=== PATIENT | male | born 1945 | race Hispanic/Latino ===

== ENCOUNTER 2017-06-18 20:07 | Emergency (ER) | payer MEDICARE ==
[2017-06-19] MEDS ORDERED: TORADOL IM ONE (00:31)
--- NOTE | 2017-06-19 00:35 | Emergency Department Report ---
ED Extremity Problem HPI - General Chief complaint: Extremity Injury, Lower Stated complaint: KNEE PAIN Time Seen by Provider: 06/19/17 00:30 Source: patient Mode of arrival: Ambulatory Limitations: No Limitations - History of Present Illness Initial comments: 72-year-old male comes in complaining about right knee pain has been going on for a week. Patient reports that he has sprained his right knee week ago and was seen by his orthopedist. Today he reports that the pain is worsening. Patient reports that he was moving a rug washer about a day and a half ago and that's when he started to have pain. 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 Patient reports most of his pain is in the posterior portion of the knee. MD Complaint: extremity pain -: week(s) (1) Location: right, knee History of Same: Yes -: Yes arthralgia Radiation: none Severity scale (0 -10): 9 Quality: aching Improves with: rest Worsens with: weight bearing, walking Associated Symptoms: denies other symptoms - Related Data Home Medications Medication Instructions Recorded Confirmed Last Taken Lisinopril 10 mg PO DAILY 06/18/17 06/18/17 Unknown metFORMIN 500 mg PO BID 06/18/17 06/18/17 Unknown Previous Rx's Medication Instructions Recorded Last Taken Type Naproxen [Naprosyn] 500 mg PO BID #20 tablet 06/19/17 Unknown Rx Allergies Allergy/AdvReac Type Severity Reaction Status Date / Time No Known Allergies Allergy Unverified 06/18/17 20:46 ED Review of Systems ROS: Stated complaint: KNEE PAIN Other details as noted in HPI Constitutional: denies: chills, fever Eyes: denies: eye pain, eye discharge, vision change ENT: denies: ear pain, throat pain Respiratory: denies: cough, shortness of breath, wheezing Cardiovascular: denies: chest pain, palpitations Endocrine: no symptoms reported Gastrointestinal: denies: abdominal pain, nausea, diarrhea Genitourinary: denies: urgency, dysuria Musculoskeletal: arthralgia (right knee). denies: back pain, joint swelling Skin: denies: rash, lesions Neurological: denies: headache, weakness, paresthesias Psychiatric: denies: anxiety, depression Hematological/Lymphatic: denies: easy bleeding, easy bruising ED Past Medical Hx - Past Medical History Hx Hypertension: Yes Hx Diabetes: Yes Additional medical history: High Cholesterol - Surgical History Additional Surgical History: CABG X4 - Social History Smoking Status: Never Smoker Substance Use Type: None - Medications Home Medications: Home Medications Medication Instructions Recorded Confirmed Last Taken Type Lisinopril 10 mg PO DAILY 06/18/17 06/18/17 Unknown History metFORMIN 500 mg PO BID 06/18/17 06/18/17 Unknown History Naproxen [Naprosyn] 500 mg PO BID #20 tablet 06/19/17 Unknown Rx ED Physical Exam - General Limitations: No Limitations General appearance: alert, in no apparent distress - Head Head exam: Present: atraumatic, normocephalic - Eye Eye exam: Present: normal appearance - ENT ENT exam: Present: mucous membranes moist - Neck Neck exam: Present: normal inspection - Expanded Lower Extremity Exam Right Hip exam: Present: full ROM Upper Leg exam: Present: normal inspection, full ROM Knee exam: Present: normal inspection, full ROM, tenderness (posterior knee). Absent: swelling, abrasion, ecchymosis, deformity, erythema Lower Leg exam: Present: normal inspection, full ROM. Absent: tenderness, swelling Ankle exam: Present: normal inspection Foot/Toe exam: Present: normal inspection Neuro vascular tendon exam: Present: no vascular compromise ED Course Vital Signs 06/18/17 20:24 Temperature 100.3 F H Pulse Rate 81 Respiratory 20 Rate Blood Pressure 111/85 O2 Sat by Pulse 99 Oximetry ED Medical Decision Making - Medical Decision Making Patient has been evaluated by this provider fast track. I discussed this patient Toradol injection of 30 mg. I would've liked to given him prednisone the patient is a diabetic. I discussed the patient discharged him on naproxen to take twice a day and to follow-up with his orthopedist patient verbalizes understanding. Critical care attestation.: If time is entered above; I have spent that time in minutes in the direct care of this critically ill patient, excluding procedure time. ED Disposition Clinical Impression: Posterior right knee pain Disposition: DC-01 TO HOME OR SELFCARE Is pt being admited?: No Does the pt Need Aspirin: No Condition: Stable Additional Instructions: Please take pain medication as prescribed. Please take all chronic medication as prescribed. Please follow-up with the orthopedist. Prescriptions: Naproxen [Naprosyn] 500 mg PO BID #20 tablet Referrals: THADDEUS CARSON MD [Primary Care Provider] - 3-5 Days your,provider [Other] - 3-5 Days
--- NOTE | 2017-06-19 01:03 | XRay Report ---
FINAL REPORT PROCEDURE: XR KNEE 3V RT TECHNIQUE: RIGHT knee radiographs, AP, lateral and oblique views. CPT 10217 HISTORY: right knee pain COMPARISON: No prior studies are available for comparison. FINDINGS: Fracture (s) and/or Dislocation(s): None . Alignment: Normal . Joint space(s): Moderate narrowing of the joint spaces. Mild spur formation off of the osseous structures.. Soft tissues: Normal . Bone mineralization: Normal . Foreign bodies: None . IMPRESSION: There is no evidence of an acute fracture or dislocation. Mild arthritis.
[2017-06-19 01:19] VITALS: BP 114/83
== END 2017-06-19 01:20 | disposition home or self-care (01) ==
LOC: ED 20:07
DX: M25.561 Pain in right knee (principal); I10 Essential (primary) hypertension; E11.9 Type 2 diabetes mellitus without complications; E78.00 Pure hypercholesterolemia, unspecified; Z95.1 Presence of aortocoronary bypass graft
CPT/HCPCS: 73562; 82962; 96372; 99283; J1885

== ENCOUNTER 2017-07-24 19:13 | Emergency (ER) | payer MEDICARE ==
[2017-07-24 19:26] VITALS: BP 154/106
--- NOTE | 2017-07-24 23:03 | Emergency Department Report ---
Eye Injury/Foreign Body - HPI Duration: 2 Days Eye Location: Left Severity: Moderate Tetanus Status: Up to Date Eye Symptoms: Eye Pain: Yes, Blurred Vision: No, Eye Redness: Yes, Grinding/ Hammering Metal: No, Used Eye Protection: No, Contact Lens Use: No, Recalls Injury: No, Photophobia: No Other History: No visual loss, grittiness to left eye with matted eyelashes with purulent discharge, no visual loss no eye pain no photophobia he is here because he thinks he has pinkeye ED Review of Systems ROS: Stated complaint: LEFT EYE PAIN Other details as noted in HPI Comment: All other systems reviewed and negative Constitutional: denies: diaphoresis, fever, malaise Eyes: as per HPI, eye discharge, other (no visual loss no foreign body) Respiratory: denies: shortness of breath, SOB with exertion, SOB at rest, stridor Cardiovascular: denies: chest pain, palpitations, dyspnea on exertion, orthopnea , edema, syncope, paroxysmal nocturnal dyspnea ED Past Medical Hx - Past Medical History Hx Hypertension: Yes Hx Heart Attack/AMI: Yes Hx Diabetes: Yes Additional medical history: High Cholesterol - Surgical History Additional Surgical History: CABG X4, Bilateral Cataract surgery - Social History Smoking Status: Never Smoker Substance Use Type: None - Medications Home Medications: Home Medications Medication Instructions Recorded Confirmed Last Taken Type Lisinopril 10 mg PO DAILY 06/18/17 06/18/17 Unknown History metFORMIN 500 mg PO BID 06/18/17 06/18/17 Unknown History Naproxen [Naprosyn] 500 mg PO BID #20 tablet 06/19/17 Unknown Rx Tobramycin 0.3% [Tobrex] 1 drop OS Q4HR 5 Days #1 bottle 07/24/17 Unknown Rx Eye Injury Exam - Exam General: Vital signs noted. No distress. Alert and acting appropriately. - Visual Acuity Left Vision Acuity Degree: 20/20 Eye Exam: Left Injection, Left Purulent Discharge Right Vision Acuity Degree: 20/20 Bilateral Vision Acuity Degree: 20/40 Exam: No hyphema no hypopyon normal K bilaterally extraocular motions intact. She. Fundus poorly visualized no gross hemorrhage or exudate pressure is normal bilatpalpation stable for outpatient follow-up ED Course Vital Signs 07/24/17 19:20 Temperature 98.4 F Pulse Rate 72 Respiratory 18 Rate Blood Pressure 154/106 O2 Sat by Pulse 97 Oximetry ED Medical Decision Making - Medical Decision Making O[place]da is normal no anterior chamber problems no evidence of shortness of problems no visual loss normal pressure bilaterally does have purulence with injection and left conjunctivitis stable for outpatient follow-up Critical care attestation.: If time is entered above; I have spent that time in minutes in the direct care of this critically ill patient, excluding procedure time. ED Disposition Clinical Impression: [place] eye Disposition: DC-01 TO HOME OR SELFCARE Is pt being admited?: No Condition: Stable Instructions: Conjunctivitis (ED) Additional Instructions: See the doctor listed return if new or alarming symptoms medication as directed Prescriptions: Tobramycin 0.3% [Tobrex] 1 drop OS Q4HR 5 Days #1 bottle Referrals: THADDEUS CARSON MD [Primary Care Provider] - 3-5 Days Time of Disposition: 23:05
== END 2017-07-24 23:32 | disposition home or self-care (01) ==
LOC: ED 19:13
DX: H10.022 Other mucopurulent conjunctivitis, left eye (principal); I10 Essential (primary) hypertension; I25.2 Old myocardial infarction; E11.9 Type 2 diabetes mellitus without complications; E78.00 Pure hypercholesterolemia, unspecified
CPT/HCPCS: 99282

== ENCOUNTER 2017-07-27 03:20 | Emergency (ER) | payer MEDICARE ==
[2017-07-27 05:26] LABS: Bilirubin,Urine NEG (Negative); Blood,Urine NEG (Negative); Color,Urine Yellow (Yellow); Hyaline Casts,Urine 1 /LPF; Protein,Urine <15 mg/dL mg/dL (Negative)
[2017-07-27 05:32] LABS: Amphetamine Screen,Urine PRESUMPTIVE NEGATIVE; Benzodiazepines Screen,Urine PRESUMPTIVE NEGATIVE; Cannabinoid Screen,Urine PRESUMPTIVE NEGATIVE; Cocaine Screen,Urine PRESUMPTIVE NEGATIVE; Methadone Screen,Urine PRESUMPTIVE NEGATIVE; Opiate Screen,Urine PRESUMPTIVE NEGATIVE
[2017-07-27 05:33] LABS: Basophils % (Auto) 0.4 % (0.0-1.8); Eosinophils # (Auto) 0.2 K/mm3 (0.0-0.4); Eosinophils % (Auto) 2.5 % (0.0-4.3); Hematocrit 36.4 % (35.5-45.6); Hemoglobin 12.3 gm/dl (11.8-15.2); Lymphocytes # (Auto) 2.5 K/mm3 (1.2-5.4); Lymphocytes % (Auto) 31.3 % (13.4-35.0); Mean Corpuscular HGB Conc 34 % (32-34); Mean Corpuscular Hemoglobin 32 pg (28-32); Mean Corpuscular Volume 94 fl (84-94); Monocytes % (Auto) 11.8 % (0.0-7.3); Platelet Count 259 K/mm3 (140-440); Red Blood Count 3.89 M/mm3 (3.65-5.03); Red Cell Distribution Width 14.6 % (13.2-15.2)
[2017-07-27 05:43] LABS: INR 0.98 (0.87-1.13)
[2017-07-27 05:53] LABS: Calcium 10.4 mg/dL (8.4-10.2)
[2017-07-27 09:57] LABS: Free T4 (Free Thyroxine) 1.41 ng/dL (0.76-1.46)
[2017-07-27] MEDS ORDERED: K-DUR PO ONE (10:14)
[2017-07-27] MEDS ORDERED: FUL-GLO OP ONE (11:03)
[2017-07-27] MEDS ORDERED: TETRACAINE 0.5% OU STA (11:04)
--- NOTE | 2017-07-27 12:47 | Emergency Department Report ---
ED Psych HPI - General Chief Complaint: Psych Stated Complaint: LEFT EYE PAIN Time Seen by Provider: 07/27/17 10:11 Source: patient Mode of arrival: Ambulatory - History of Present Illness MD Complaint: other (feels like he is having a nervous breakdown and is not sleeping) -: week(s) (1) Associated Psychiatric Symptoms: other (pt denied to me any suicidal or homicidal thoughts; I spoke with pt's son who stated he does not feel the pt is a danger to himself or anyone else. Son stated pt has a lot of recent stress and is not sleeping.He stated that he does not feel the pt would overdose or do anything harmful to himself) Associated Symptoms: insomnia - Related Data Home Medications Medication Instructions Recorded Confirmed Last Taken Lisinopril 10 mg PO DAILY 06/18/17 06/18/17 Unknown metFORMIN 500 mg PO BID 06/18/17 06/18/17 Unknown Previous Rx's Medication Instructions Recorded Last Taken Type Naproxen [Naprosyn] 500 mg PO BID #20 tablet 06/19/17 Unknown Rx Tobramycin 0.3% [Tobrex] 1 drop OS Q4HR 5 Days #1 bottle 07/24/17 Unknown Rx ALPRAZolam [Xanax TAB] 0.5 mg PO TID PRN #9 tab 07/27/17 Unknown Rx Allergies Allergy/AdvReac Type Severity Reaction Status Date / Time No Known Allergies Allergy Unverified 06/18/17 20:46 ED Review of Systems ROS: Stated complaint: LEFT EYE PAIN Other details as noted in HPI Constitutional: denies: diaphoresis, fever Eyes: eye discharge (pt is currently being treated with antibiotic eye drops), other (left eye irritation; pt states he has a history of cataract removal and laser surgery) Respiratory: denies: shortness of breath, SOB with exertion, SOB at rest Cardiovascular: denies: chest pain Endocrine: denies: excessive sweating Gastrointestinal: denies: abdominal pain Musculoskeletal: denies: joint swelling Skin: denies: rash Neurological: denies: numbness Psychiatric: denies: auditory hallucinations, homicidal thoughts, suicidal thoughts ED Past Medical Hx - Past Medical History Previous Medical History?: Yes Hx Hypertension: Yes Hx Heart Attack/AMI: Yes (CABG x 4) Hx Diabetes: Yes Additional medical history: High Cholesterol - Surgical History Past Surgical History?: Yes Additional Surgical History: CABG X4, Bilateral Cataract surgery - Social History Smoking Status: Never Smoker Substance Use Type: None - Medications Home Medications: Home Medications Medication Instructions Recorded Confirmed Last Taken Type Lisinopril 10 mg PO DAILY 06/18/17 06/18/17 Unknown History metFORMIN 500 mg PO BID 06/18/17 06/18/17 Unknown History Naproxen [Naprosyn] 500 mg PO BID #20 tablet 06/19/17 Unknown Rx Tobramycin 0.3% [Tobrex] 1 drop OS Q4HR 5 Days #1 bottle 07/24/17 Unknown Rx ALPRAZolam [Xanax TAB] 0.5 mg PO TID PRN #9 tab 07/27/17 Unknown Rx ED Physical Exam - General Limitations: No Limitations General appearance: alert, in no apparent distress - Head Head exam: Present: atraumatic, normocephalic - Eye Eye exam: Present: normal appearance, PERRL, EOMI, conjunctival injection, other (iop os 10 iop od 14; no corneal abrasion on left; yellowish drainage from left eye). Absent: periorbital swelling Pupils: Absent: unequal, miosis, mydriatic - ENT ENT exam: Present: normal exam - Neck Neck exam: Present: normal inspection - Respiratory Respiratory exam: Present: normal lung sounds bilaterally. Absent: respiratory distress, wheezes, rales, stridor - Cardiovascular Cardiovascular Exam: Present: regular rate, normal rhythm, normal heart sounds - GI/Abdominal GI/Abdominal exam: Present: soft, normal bowel sounds. Absent: distended, tenderness, guarding, rebound - Back Exam Back exam: Present: normal inspection - Neurological Exam Neurological exam: Present: alert, oriented X3, CN II-XII intact - Psychiatric Psychiatric exam: Present: normal mood. Absent: depressed - Skin Skin exam: Present: warm, dry, intact ED Course Vital Signs 07/27/17 07/27/17 07/27/17 03:21 04:21 10:20 Temperature 97.9 F 97.9 F 97.5 F L Pulse Rate 79 70 66 Respiratory 18 20 16 Rate Blood Pressure 148/89 148/89 Blood Pressure 138/77 [Right] O2 Sat by Pulse 93 96 100 Oximetry 07/27/17 07/27/17 13:56 18:35 Temperature 98.3 F 98.1 F Pulse Rate 76 82 Respiratory 16 16 Rate Blood Pressure Blood Pressure 129/76 110/56 [Right] O2 Sat by Pulse 100 96 Oximetry - Reevaluation(s) Reevaluation #1: 07/27/17 16:20 Pt is awaiting eval by Amber from [facility] 07/27/17 16:20 Amber informed me pt had been evaluated and he can be dc'd from her standpoint. ED Medical Decision Making - Lab Data Result diagrams: 07/27/17 04:34 07/27/17 04:34 - Medical Decision Making Pt is stressed and has anxiety and insomnia issues, but exhibits no homocidal or suicidal behavior. - Differential Diagnosis insomnia, Critical care attestation.: If time is entered above; I have spent that time in minutes in the direct care of this critically ill patient, excluding procedure time. ED Disposition Clinical Impression: Anxiety, Insomnia, Conjunctivitis, Hypokalemia Disposition: DC-01 TO HOME OR SELFCARE Is pt being admited?: No Does the pt Need Aspirin: No Condition: Stable Instructions: Conjunctivitis (ED), Insomnia (ED), Anxiety (ED) Additional Instructions: continue your eye drops follow up with your eye doctor this week return sooner if worse or if further concerns Prescriptions: ALPRAZolam [Xanax TAB] 0.5 mg PO TID PRN #9 tab PRN Reason: Anxiety Referrals: PRADEEP MARSH MD [Primary Care Provider] - 3-5 Days Time of Disposition: 16:51
[2017-07-27 18:35] VITALS: BP 110/56
== END 2017-07-27 19:56 | disposition home or self-care (01) ==
LOC: ED 03:20
DX: H10.9 Unspecified conjunctivitis (principal); G47.00 Insomnia, unspecified; E87.6 Hypokalemia; F41.9 Anxiety disorder, unspecified; I10 Essential (primary) hypertension; I25.2 Old myocardial infarction; E11.9 Type 2 diabetes mellitus without complications; E78.00 Pure hypercholesterolemia, unspecified
CPT/HCPCS: 36415; 80048; 80307; 81001; 84439; 84443; 85025; 85610; 85730; 99284; G0480; 80320

== ENCOUNTER 2018-06-12 17:55 | Emergency (ER) | payer MEDICARE, MEDICAID ==
[2018-06-12 17:59] VITALS: BP 125/76
--- NOTE | 2018-06-12 18:01 | Emergency Department Report ---
Blank Doc - Documentation Documentation: This is a 73-year-old male that presents with right knee pain with radiation to leg. DX with arthritis. Stated has new injuries 2 days. Stated has some calf pain as well. This initial assessment/diagnostic orders/clinical plan/treatment(s) is/are subject to change based on patient's health status, clinical progression and re- assessment by fellow clinical providers in the ED. Further treatment and workup at subsequent clinical providers discretion. Patient/guardians urged not to elope from the ED as their condition may be serious if not clinically assessed and managed. Initial orders include: 1- Patient sent to MAIN for further evaluation and treatment 2- Doppler US 3- Xray
--- NOTE | 2018-06-12 18:37 | Emergency Department Report ---
ED Lower Extremity HPI - General Chief Complaint: Extremity Injury, Lower Stated Complaint: PAIN IN (R) LEG Time Seen by Provider: 06/12/18 18:34 Source: patient Mode of arrival: Wheelchair Limitations: Physical Limitation - History of Present Illness Initial Comments: Patient is 73-year-old male that presents emergency room with complaints of rt knee pain. Patient states that the pain started 3 days ago and is worsening. Patient states he twisted his knee lifting firewood. Patient denies trauma. Patient denies falling. Patient states the pain is 10 out of 10. Patient states it's nonradiating. Patient states it's in his right knee and is causing swelling. Patient denies chest pain or shortness of breath. Patient denies abdominal pain.\ MD Complaint: knee injury -: Sudden Injury: Knee: Right Type of Injury: eversion Place: home Severity: severe Severity scale (0 -10): 10 Improves With: rest Worsens With: weight bearing, movement, palpation Context: other (twisting) Associated Symptoms: swelling, able to partially bear weight - Related Data Home Medications Medication Instructions Recorded Confirmed Last Taken metFORMIN 500 mg PO BID 06/18/17 08/07/17 Unknown Aricept 10 mg PO HS 08/11/17 08/11/17 Unknown Lactulose [Constulose] 15 ml PO BID 08/11/17 08/11/17 Unknown Lisinopril [Zestril] 20 mg PO DAILY 08/11/17 08/11/17 Unknown Pepcid 20 mg PO DAILY 08/11/17 08/11/17 Unknown Quetiapine Fumarate [SEROquel] 50 mg PO QDAY 08/11/17 08/11/17 Unknown glyBURIDE [Diabeta] 2.5 mg PO DAILY 08/11/17 08/11/17 Unknown hydroCHLOROthiazide [HCTZ] 25 mg PO QDAY 08/11/17 08/11/17 Unknown metFORMIN [Glucophage] 500 mg PO BID 08/11/17 08/11/17 Unknown Previous Rx's Medication Instructions Recorded Last Taken Type Tobramycin 0.3% [Tobrex] 1 drop OS Q4HR 5 Days #1 bottle 07/24/17 Unknown Rx ALPRAZolam [Xanax TAB] 0.5 mg PO TID PRN #9 tab 07/27/17 Unknown Rx Aspirin EC [Aspirin Enteric Coated 325 mg PO QDAY #30 tablet. 08/11/17 Unknown Rx TAB] AtorvaSTATin [Lipitor] 10 mg PO QHS #30 tab 08/11/17 Unknown Rx Tramadol HCl [Ultram] 50 mg PO Q6HR PRN #12 tablet 06/12/18 Unknown Rx Allergies Allergy/AdvReac Type Severity Reaction Status Date / Time No Known Allergies Allergy Verified 06/12/18 17:56 ED Review of Systems ROS: Stated complaint: PAIN IN (R) LEG Other details as noted in HPI Constitutional: denies: chills, fever Eyes: denies: eye pain, eye discharge, vision change ENT: denies: ear pain, throat pain Respiratory: denies: cough, shortness of breath, wheezing Cardiovascular: denies: chest pain, palpitations Endocrine: no symptoms reported Gastrointestinal: denies: abdominal pain, nausea, diarrhea Genitourinary: denies: urgency, dysuria Musculoskeletal: joint swelling. denies: back pain, arthralgia Skin: denies: rash, lesions Neurological: denies: headache, weakness, paresthesias Psychiatric: denies: anxiety, depression Hematological/Lymphatic: denies: easy bleeding, easy bruising ED Past Medical Hx - Past Medical History Previous Medical History?: Yes Hx Hypertension: Yes Hx Heart Attack/AMI: Yes (CABG x 4) Hx Diabetes: Yes Hx HIV: No Additional medical history: High Cholesterol - Surgical History Past Surgical History?: Yes Additional Surgical History: CABG X4, Bilateral Cataract surgery - Family History Family history: no significant - Social History Smoking Status: Never Smoker Substance Use Type: None - Medications Home Medications: Home Medications Medication Instructions Recorded Confirmed Last Taken Type metFORMIN 500 mg PO BID 06/18/17 08/07/17 Unknown History Tobramycin 0.3% [Tobrex] 1 drop OS Q4HR 5 Days #1 bottle 07/24/17 08/07/17 Unknown Rx ALPRAZolam [Xanax TAB] 0.5 mg PO TID PRN #9 tab 07/27/17 08/07/17 Unknown Rx Aricept 10 mg PO HS 08/11/17 08/11/17 Unknown History Aspirin EC [Aspirin Enteric Coated 325 mg PO QDAY #30 tablet. 08/11/17 Unknown Rx TAB] AtorvaSTATin [Lipitor] 10 mg PO QHS #30 tab 08/11/17 Unknown Rx Lactulose [Constulose] 15 ml PO BID 08/11/17 08/11/17 Unknown History Lisinopril [Zestril] 20 mg PO DAILY 08/11/17 08/11/17 Unknown History Pepcid 20 mg PO DAILY 08/11/17 08/11/17 Unknown History Quetiapine Fumarate [SEROquel] 50 mg PO QDAY 08/11/17 08/11/17 Unknown History glyBURIDE [Diabeta] 2.5 mg PO DAILY 08/11/17 08/11/17 Unknown History hydroCHLOROthiazide [HCTZ] 25 mg PO QDAY 08/11/17 08/11/17 Unknown History metFORMIN [Glucophage] 500 mg PO BID 08/11/17 08/11/17 Unknown History Tramadol HCl [Ultram] 50 mg PO Q6HR PRN #12 tablet 06/12/18 Unknown Rx ED Physical Exam - General Limitations: Physical Limitation General appearance: alert, in no apparent distress - Head Head exam: Present: atraumatic, normocephalic - Eye Eye exam: Present: normal appearance - ENT ENT exam: Present: mucous membranes moist - Neck Neck exam: Present: normal inspection - Respiratory Respiratory exam: Present: normal lung sounds bilaterally. Absent: respiratory distress - Cardiovascular Cardiovascular Exam: Present: regular rate, normal rhythm. Absent: systolic murmur, diastolic murmur, rubs, gallop - GI/Abdominal GI/Abdominal exam: Present: soft, normal bowel sounds - Rectal Rectal exam: Present: deferred - Extremities Exam Extremities exam: Present: tenderness (right lateral knee tenderness. Tenderness over right meniscus.), normal capillary refill, joint swelling (right knee swelling noted). Absent: full ROM, pedal edema, calf tenderness - Back Exam Back exam: Present: normal inspection - Neurological Exam Neurological exam: Present: alert, oriented X3 - Psychiatric Psychiatric exam: Present: normal affect, normal mood - Skin Skin exam: Present: warm, dry, intact, normal color. Absent: rash ED Course Vital Signs 06/12/18 17:57 Temperature 99.9 F H Pulse Rate 70 Respiratory 20 Rate Blood Pressure 125/76 O2 Sat by Pulse 96 Oximetry - Reevaluation(s) Reevaluation #1: Initial exam done. Patient appears to have a right knee sprain. Joint effusion noted. X-ray and ultrasound pending 06/12/18 19:09 X-ray negative or positive for joint effusion. Ultrasound negative for DVT. Discussed all results with patient. Patient given discharge instructions. Patient is stable for discharge. 06/12/18 19:46 ED Lower Extremity MDM - Radiology Data Radiology results: report reviewed, image reviewed PROCEDURE: XR KNEE 3V RT TECHNIQUE: AP, oblique and lateral views were obtained. HISTORY: right knee pain COMPARISONS: None FINDINGS: No fracture or dislocation visualized. There is a moderate-sized joint effusion present. There is joint space narrowing and marginal osteophyte formation in the patellofemoral joint space and to a lesser extent in the lateral compartment of the knee. Surgical clips are seen in the soft tissues medial aspect of the knee and lower leg. Diffuse vascular calcifications project over the thigh, knee and calf. IMPRESSION: Moderate osteoarthritis patellofemoral joint space, mild osteoarthritis lateral compartment of the knee. Moderate-sized joint effusion is present. No acute bone abnormalities identified. Postsurgical changes are present as described. Atherosclerosis.. PROCEDURE: US RIGHT LOWER EXTREMITY VENOUS DUPLEX DOPPLER TECHNIQUE: Duplex Doppler ultrasound of the RIGHT common and superficial femoral, popliteal, posterior tibial, and proximal deep femoral and greater saphenous veins was attempted. Guardado scale imaging with and without compression, spectral waveform analysis with and without augmentation, and color flow Doppler were employed. CPT 01017-QH HISTORY: Right leg pain. Evaluate DVT COMPARISONS: None . FINDINGS: Deep Venous Thrombus: None . Superficial Venous Thrombus: None . Venous valvular incompetence: None . Soft tissue abnormality: None . Other: Joint effusion appears to be present. . IMPRESSION: No evidence of deep venous thrombosis . - Medical Decision Making She is a 73-year-old male lives in some urgency with right knee swelling and pain. Patient artery as a point with orthopedist tomorrow. Patient struck to see the orthopedist. Clinical findings consistent with a right knee sprain with a possibility of a ligament or meniscal injury. I explained to the patient he will need an MRI and orthopedic follow-up. Patient will be given pain meds and instructed to take ibuprofen when necessary. Patient given discharge instructions. Patient given medication instructions. Patient given return to ER instructions. Patient voiced understanding of all discharge instructions - Differential Diagnosis knee pain. Strain, sprain, fracture. Critical care attestation.: If time is entered above; I have spent that time in minutes in the direct care of this critically ill patient, excluding procedure time. ED Disposition Clinical Impression: Knee pain, acute Qualifiers: Laterality: right Qualified Code(s): M25.561 - Pain in right knee Knee sprain Qualifiers: Encounter type: initial encounter Involved ligament of knee: unspecified ligament Laterality: right Qualified Code(s): S83.91XA - Sprain of unspecified site of right knee, initial encounter Joint effusion of knee Qualifiers: Laterality: right Qualified Code(s): M25.461 - Effusion, right knee Disposition: TO HOME OR SELFCARE Is pt being admited?: No Does the pt Need Aspirin: No Condition: Stable Instructions: Knee Effusion (ED), Knee Sprain (ED), Knee Pain (ED), Magnetic Resonance Imaging (ED) Additional Instructions: Patient to follow-up with primary care in 2-3 days. Patient to follow with orthopedist as soon as possible. Patient to return to ER if condition worsens. Patient to take meds as directed. Patient to take Tylenol or ibuprofen when necessary for pain. Patient to rest. Patient to avoid strenuous exercise and elevate knee. Prescriptions: Tramadol HCl [Ultram] 50 mg PO Q6HR PRN #12 tablet PRN Reason: Pain , Severe (7-10) Referrals: NAGI LOZOYA MD [Primary Care Provider] - 2-3 Days KOJO GREGORIO MD [Staff Physician] - 24 Hours Time of Disposition: 19:48
--- NOTE | 2018-06-12 19:19 | XRay Report ---
PROCEDURE: XR KNEE 3V RT TECHNIQUE: AP, oblique and lateral views were obtained. HISTORY: right knee pain COMPARISONS: None FINDINGS: No fracture or dislocation visualized. There is a moderate-sized joint effusion present. There is marimar nt space narrowing and marginal osteophyte formation in the patellofemoral joint space and to a lesse r extent in the lateral compartment of the knee. Surgical clips are seen in the soft tissues medial a spect of the knee and lower leg. Diffuse vascular calcifications project over the thigh, knee and danya f. IMPRESSION: Moderate osteoarthritis patellofemoral joint space, mild osteoarthritis lateral compartment of the kn ee. Moderate-sized joint effusion is present. No acute bone abnormalities identified. Postsurgical changes are present as described. Atherosclerosis.. This document is electronically signed by Paul Barron MD., June 12 2018 07:17:04 PM ET
--- NOTE | 2018-06-12 19:21 | Vascular Lab Report ---
PROCEDURE: US RIGHT LOWER EXTREMITY VENOUS DUPLEX DOPPLER TECHNIQUE: Duplex Doppler ultrasound of the RIGHT common and superficial femoral, popliteal, posteri or tibial, and proximal deep femoral and greater saphenous veins was attempted. Guardado scale imaging wi th and without compression, spectral waveform analysis with and without augmentation, and color flow Doppler were employed. CPT 66328-ZR HISTORY: Right leg pain. Evaluate DVT COMPARISONS: None . FINDINGS: Deep Venous Thrombus: None . Superficial Venous Thrombus: None . Venous valvular incompetence: None . Soft tissue abnormality: None . Other: Joint effusion appears to be present. . IMPRESSION: No evidence of deep venous thrombosis . This document is electronically signed by Paul Barron MD., June 12 2018 07:19:34 PM ET
== END 2018-06-12 20:21 | disposition home or self-care (01) ==
LOC: ED 17:55
DX: S83.91XA Sprain of unspecified site of right knee, initial encounter (principal); I10 Essential (primary) hypertension; I25.2 Old myocardial infarction; E11.9 Type 2 diabetes mellitus without complications; E78.00 Pure hypercholesterolemia, unspecified; Z95.1 Presence of aortocoronary bypass graft; Z79.899 Other long term (current) drug therapy

== ENCOUNTER 2018-07-17 13:34 | Emergency (ER) | payer MEDICARE ==
[2018-07-17 14:33] VITALS: BP 115/57
--- NOTE | 2018-07-17 14:36 | Emergency Department Report ---
Chief Complaint: Skin/Abscess/Foreign Body Stated Complaint: RT ELBOW HARDNESS Time Seen by Provider: 07/17/18 14:31 - HPI History of Present Illness: pt presents with pain and edema to the right elbow that began 1 week ago no fall or injury never had before pt has an appointment to see an orthopedic surgeon on 07/18/18 MSE screening note: Focused history and physical exam performed. ED Disposition for MSE Condition: Stable
--- NOTE | 2018-07-17 14:54 | Emergency Department Report ---
Chief Complaint: Skin/Abscess/Foreign Body Stated Complaint: RT ELBOW HARDNESS Time Seen by Provider: 07/17/18 14:31 - HPI History of Present Illness: Pt is a 73 yo male who presents to the ED with c/o pain and edema to the right elbow that began a week ago. The patient denies any injury, fall, or trauma. The patient states he has had gout before in the foot. He denies any fever or drainage. The patient has an appointment to see an orthopedic surgeon on [facility] on 07/18/18. meant to open full H&P note - Exam Vital Signs: Vital Signs 07/17/18 14:32 Temperature 98.4 F Pulse Rate 62 Respiratory 16 Rate Blood Pressure 115/57 O2 Sat by Pulse 95 Oximetry MSE screening note: Focused history and physical exam performed. ED Disposition for MSE Condition: Stable
--- NOTE | 2018-07-17 15:03 | Emergency Department Report ---
ED Extremity Problem HPI - General Chief complaint: Skin/Abscess/Foreign Body Stated complaint: RT ELBOW HARDNESS Time Seen by Provider: 07/17/18 14:31 Source: patient Mode of arrival: Ambulatory Limitations: No Limitations - History of Present Illness Initial comments: Pt is a 73 yo male who presents to the ED with c/o pain and edema to the right elbow that began a week ago. The patient denies any injury, fall, or trauma. The patient states he has had gout before in the foot. He denies any fever or drainage. The patient has an appointment to see an orthopedic surgeon on [facility] on 07/18/18. Severity scale (0 -10): 10 - Related Data Home Medications Medication Instructions Recorded Confirmed Last Taken metFORMIN 500 mg PO BID 06/18/17 08/07/17 Unknown Aricept 10 mg PO HS 08/11/17 08/11/17 Unknown Lactulose [Constulose] 15 ml PO BID 08/11/17 08/11/17 Unknown Lisinopril [Zestril] 20 mg PO DAILY 08/11/17 08/11/17 Unknown Pepcid 20 mg PO DAILY 08/11/17 08/11/17 Unknown Quetiapine Fumarate [SEROquel] 50 mg PO QDAY 08/11/17 08/11/17 Unknown glyBURIDE [Diabeta] 2.5 mg PO DAILY 08/11/17 08/11/17 Unknown hydroCHLOROthiazide [HCTZ] 25 mg PO QDAY 08/11/17 08/11/17 Unknown metFORMIN [Glucophage] 500 mg PO BID 08/11/17 08/11/17 Unknown Previous Rx's Medication Instructions Recorded Last Taken Type Tobramycin 0.3% [Tobrex] 1 drop OS Q4HR 5 Days #1 bottle 07/24/17 Unknown Rx ALPRAZolam [Xanax TAB] 0.5 mg PO TID PRN #9 tab 07/27/17 Unknown Rx Aspirin EC [Aspirin Enteric Coated 325 mg PO QDAY #30 tablet.dr 08/11/17 Unknown Rx TAB] AtorvaSTATin [Lipitor] 10 mg PO QHS #30 tab 08/11/17 Unknown Rx Acetaminophen/Codeine [Tylenol 1 tab PO Q6H PRN #14 tab 07/17/18 Unknown Rx /Codeine # 3 tab] Colchicine 0.6 mg PO BID 2 Days #4 capsule 07/17/18 Unknown Rx Ibuprofen [Motrin] 600 mg PO Q8H PRN #20 tablet 07/17/18 Unknown Rx Prednisone [predniSONE 10 mg 10 mg PO .TAPER 6 Days #1 tab.ds.pk 07/17/18 Unknown Rx (6-Day Pack, 21 Tabs)] Allergies Allergy/AdvReac Type Severity Reaction Status Date / Time No Known Allergies Allergy Verified 07/17/18 13:37 ED Review of Systems ROS: Stated complaint: RT ELBOW HARDNESS Other details as noted in HPI Comment: All other systems reviewed and negative ED Past Medical Hx - Past Medical History Hx Hypertension: Yes Hx Heart Attack/AMI: Yes (CABG x 4) Hx Diabetes: Yes Hx HIV: No Additional medical history: High Cholesterol - Surgical History Additional Surgical History: CABG X4, Bilateral Cataract surgery - Social History Smoking Status: Never Smoker Substance Use Type: None - Medications Home Medications: Home Medications Medication Instructions Recorded Confirmed Last Taken Type metFORMIN 500 mg PO BID 06/18/17 08/07/17 Unknown History Tobramycin 0.3% [Tobrex] 1 drop OS Q4HR 5 Days #1 bottle 07/24/17 08/07/17 Unknown Rx ALPRAZolam [Xanax TAB] 0.5 mg PO TID PRN #9 tab 07/27/17 08/07/17 Unknown Rx Aricept 10 mg PO HS 08/11/17 08/11/17 Unknown History Aspirin EC [Aspirin Enteric Coated 325 mg PO QDAY #30 tablet.dr 08/11/17 Unknown Rx TAB] AtorvaSTATin [Lipitor] 10 mg PO QHS #30 tab 08/11/17 Unknown Rx Lactulose [Constulose] 15 ml PO BID 08/11/17 08/11/17 Unknown History Lisinopril [Zestril] 20 mg PO DAILY 08/11/17 08/11/17 Unknown History Pepcid 20 mg PO DAILY 08/11/17 08/11/17 Unknown History Quetiapine Fumarate [SEROquel] 50 mg PO QDAY 08/11/17 08/11/17 Unknown History glyBURIDE [Diabeta] 2.5 mg PO DAILY 08/11/17 08/11/17 Unknown History hydroCHLOROthiazide [HCTZ] 25 mg PO QDAY 08/11/17 08/11/17 Unknown History metFORMIN [Glucophage] 500 mg PO BID 08/11/17 08/11/17 Unknown History Acetaminophen/Codeine [Tylenol 1 tab PO Q6H PRN #14 tab 07/17/18 Unknown Rx /Codeine # 3 tab] Colchicine 0.6 mg PO BID 2 Days #4 capsule 07/17/18 Unknown Rx Ibuprofen [Motrin] 600 mg PO Q8H PRN #20 tablet 07/17/18 Unknown Rx Prednisone [predniSONE 10 mg 10 mg PO .TAPER 6 Days #1 tab.ds.pk 07/17/18 Unknown Rx (6-Day Pack, 21 Tabs)] ED Physical Exam - General Limitations: No Limitations General appearance: alert, in no apparent distress - Head Head exam: Present: atraumatic, normocephalic - Eye Eye exam: Present: normal appearance - ENT ENT exam: Present: mucous membranes moist - Extremities Exam Extremities exam: Present: other (edema overlying the right elbow, mild increased warmth, no erythema, no drainage, FROM of the right elbow with no difficulty or pain, neurovascularly intact) - Neurological Exam Neurological exam: Present: alert, oriented X3 - Psychiatric Psychiatric exam: Present: normal affect, normal mood - Skin Skin exam: Present: warm, dry, intact ED Course Vital Signs 07/17/18 14:32 Temperature 98.4 F Pulse Rate 62 Respiratory 16 Rate Blood Pressure 115/57 O2 Sat by Pulse 95 Oximetry ED Medical Decision Making - Medical Decision Making Pt is a 73 yo male who presents to the ED with c/o pain and edema to the right elbow that began a week ago. The patient denies any injury, fall, or trauma. The patient states he has had gout before in the foot. He denies any fever or drainage. The patient has an appointment to see an orthopedic surgeon on [facility] on 07/18/18. VSS. Examination consistent with gout of the right elbow. Pt has full ROM of the elbow with no difficulty with no signs of septic arthritis. Pt placed on medications for gout. Advised to please see his orthopedic surgeon tomorrow (07/18/18) he states his appt is at 10:30 AM. Discussed to take medications as prescribed. Advised to return to the ED for any new or worsening symptoms. - Differential Diagnosis gout, bursitis, arthritis Critical care attestation.: If time is entered above; I have spent that time in minutes in the direct care of this critically ill patient, excluding procedure time. ED Disposition Clinical Impression: Gout of right elbow Qualifiers: Gout etiology: unspecified cause Chronicity: acute Qualified Code(s): M10.9 - Gout, unspecified Disposition: - TO HOME OR SELFCARE Is pt being admited?: No Does the pt Need Aspirin: No Condition: Stable Instructions: Acute Gouty Arthritis (ED) Additional Instructions: Please follow up with your orthopedic surgeon on [facility] Tomorrow (07/18/18). Please follow up with your primary care doctor in the next 2-3 days. Take all medication as prescribed. Return to the emergency room for any new or worsening symptoms. Prescriptions: Colchicine 0.6 mg PO BID 2 Days #4 capsule Ibuprofen [Motrin] 600 mg PO Q8H PRN #20 tablet PRN Reason: Pain Prednisone [predniSONE 10 mg (6-Day Pack, 21 Tabs)] 10 mg PO .TAPER 6 Days #1 tab.ds.pk Acetaminophen/Codeine [Tylenol /Codeine # 3 tab] 1 tab PO Q6H PRN #14 tab PRN Reason: Pain , Severe (7-10) Referrals: your, orthopedic [Other] - GIGI Time of Disposition: 14:58 Print Language: [place]
== END 2018-07-17 15:37 | disposition home or self-care (01) ==
LOC: ED 13:34
DX: M10.9 Gout, unspecified (principal); I10 Essential (primary) hypertension; E11.9 Type 2 diabetes mellitus without complications; I25.810 Atherosclerosis of coronary artery bypass graft(s) without angina pectoris; E78.00 Pure hypercholesterolemia, unspecified
CPT/HCPCS: 99282

== ENCOUNTER 2021-12-14 15:28 | Emergency (ER) | payer MEDICARE | END 2021-12-14 15:40 | disposition left against medical advice (07) | LOC: ED 15:28 | DX: R53.1 Weakness (principal); Z53.21 Procedure and treatment not carried out due to patient leaving prior to being seen by health care provider ==